=== PATIENT | male | born 1980 | race African-American/Black ===

== ENCOUNTER 2024-12-04 00:44 | Emergency (ER) | payer MEDICAID ==
[~2024-12-04] VITALS: Ht 167.6 cm; Wt 65.9 kg
[2024-12-04 01:56] VITALS: BP 135/98; PULSE 89; RESP 18; TEMP 97.3; O2SAT 100
== END 2024-12-04 02:47 | disposition home or self-care (01) ==
LOC: EMS 00:45
DX: M54.42 Lumbago with sciatica, left side (principal); G89.29 Other chronic pain; Z59.00 Homelessness unspecified
CPT/HCPCS: 99283; Z7502